=== PATIENT | male | born 1975 | race Caucasian/White ===

== ENCOUNTER 2018-12-18 09:59 | Outpatient (REF) | payer OTHER, SELFPAY ==
[2018-12-18 19:43] LABS: HCT 40.8 % (40.0-50.0); HGB 14.1 g/dL (13.5-17.5); Mean Corp. HGB Concentration 34.6 g/dL (32.0-36.0); Mean Corpuscular Hemoglobin 29.3 pg (27.0-33.0); Mean Corpuscular Volume 84.8 fL (80-95); Mean Platelet Volume 9.7 fL (8.0-11.0); Platelet Count 245 x1000/uL (130-400); RBC 4.81 m/cumm (4.50-6.00); RBC Distribution Width 12.7 % (11.8-14.1); White Blood Cell Count 4.85 k/cumm (4.4-10.8)
[2018-12-18 19:59] LABS: Iron 68 ug/dL (50-175); Total Iron Binding Capacity 323 ug/dL (250-450); Transferrin Sat 21 % (20-55)
[2018-12-18 20:01] LABS: Anion Gap 7.6 mmol/L (3-11); BUN 22 mg/dL (7-18); CO2 29.4 mmol/L (21.0-32.0); CREATININE 0.96 mg/dL (0.70-1.30); Calcium 8.9 mg/dL (8.5-10.1); Calculated LDL 135; Chloride 104 mmol/L (98-107); Cholesterol 191 mg/dL (50-200); Glucose 108 mg/dL (70-100); HDL Cholesterol 36 mg/dL (40-60); Potassium 4.1 mmol/L (3.5-5.1); Sodium 141 mmol/L (136-145); Triglyceride 100 mg/dL (30-150)
== END 2018-12-18 10:19 ==
LOC: NCHCN 09:59
PROVIDERS: PCP Family Medicine; Visit Provider Family Medicine
DX: E61.1 Iron deficiency (principal); Z00.00 Encounter for general adult medical examination without abnormal findings
CPT/HCPCS: 80048; 80061; 83721; 85027; 83540; 83550

== ENCOUNTER 2020-09-17 21:22 | Outpatient (REF) | payer OTHER, SELFPAY ==
[2020-09-17 19:35] LABS: HGB 14.1 g/dL (13.5-17.5); MCH 29.3 pg (27.0-33.0); MCHC 35.3 % (32.0-36.0); MCV 83.2 fL (80-95); MPV 9.4 fL (8.0-11.0); Platelet Count 262 10^3/uL (130-400); RBC 4.81 10^6/uL (4.36-5.78); RDW 12.2 % (11.8-14.1); RDW-SD 37.2 fL; WBC 6.19 10^3/uL (4.4-10.8)
[2020-09-17 19:43] LABS: ALT 78 U/L (16-63); AST 37 U/L (15-37); Albumin 4.6 g/dL (3.4-5.0); Alkaline Phosphatase 62 U/L (46-116); Anion Gap 12.5 mmol/L (3-11); BUN 18 mg/dL (7-18); Bilirubin, Total 0.5 mg/dL (0.2-1.0); CO2 25.5 mmol/L (21.0-32.0); Calcium 9.3 mg/dL (8.5-10.1); Chloride 101 mmol/L (98-107); Glucose 82 mg/dL (74-106); Potassium 3.9 mmol/L (3.5-5.1); Sodium 139 mmol/L (136-145); Total Protein 7.9 g/dL (6.4-8.2)
[2020-09-19 09:52] LABS: HIV-1/2 Ag & Ab Screen Negative (Negative)
== END 2020-09-17 21:23 | disposition home or self-care (01) ==
LOC: NCHCN 21:22
PROVIDERS: PCP Family Medicine; Visit Provider Family Medicine
DX: I10 Essential (primary) hypertension (principal); R74.01 Elevation of levels of liver transaminase levels; Z00.00 Encounter for general adult medical examination without abnormal findings; Z11.4 Encounter for screening for human immunodeficiency virus [HIV]
CPT/HCPCS: 80053; 85027; 87389

== ENCOUNTER 2021-09-18 17:32 | Outpatient (REF) | payer OTHER, SELFPAY ==
[2021-09-18 14:23] LABS: HCT 41.1 % (40.0-50.0); HGB 14.1 g/dL (13.5-17.5); MCH 29.3 pg (27.0-33.0); MCHC 34.3 % (32.0-36.0); MCV 85.3 fL (80-95); MPV 9.5 fL (8.0-11.0); Platelet Count 275 10^3/uL (130-400); RBC 4.82 10^6/uL (4.36-5.78); RDW 12.7 % (11.8-14.1)
[2021-09-18 15:16] LABS: ALT 69 U/L (16-63); AST 28 U/L (15-37); Albumin 4.5 g/dL (3.4-5.0); Alkaline Phosphatase 65 U/L (46-116); Anion Gap 10.9 mmol/L (3-11); BUN 23 mg/dL (7-18); Bilirubin, Total 0.4 mg/dL (0.2-1.0); CO2 25.1 mmol/L (21.0-32.0); Calculated LDL 118 mg/dL (<100); Chloride 105 mmol/L (98-107); Cholesterol 178 mg/dL (<200); Glucose 104 mg/dL (74-106); HDL Cholesterol 32 mg/dL (40-60); Potassium 4.4 mmol/L (3.5-5.1); Sodium 141 mmol/L (136-145); Total Protein 7.7 g/dL (6.4-8.2); Triglyceride 144 mg/dL (<150)
[2021-09-18 15:30] LABS: Calcium 9.6 mg/dL (8.5-10.1)
== END 2021-09-18 17:33 | disposition home or self-care (01) ==
LOC: NCHCN 17:32
PROVIDERS: PCP Family Medicine; Visit Provider Family Medicine
DX: E78.5 Hyperlipidemia, unspecified (principal); R73.03 Prediabetes; K76.0 Fatty (change of) liver, not elsewhere classified
CPT/HCPCS: 80053; 80061; 85027

== ENCOUNTER 2022-10-04 10:38 | Outpatient (REF) | payer OTHER, SELFPAY ==
[2022-10-04 15:21] LABS: HCT 41.6 % (40.0-50.0); HGB 14.6 g/dL (13.5-17.5); MCH 29.3 pg (27.0-33.0); MCHC 35.1 % (32.0-36.0); MCV 84 fL (80-95); MPV 9.4 fL (8.0-11.0); Platelet Count 236 10^3/uL (130-400); RBC 4.98 10^6/uL (4.36-5.78); RDW 12.4 % (11.8-14.1); RDW-SD 37.5 fL; WBC 6.91 10^3/uL (4.4-10.8)
[2022-10-04 15:38] LABS: ALT 77 U/L (16-63); AST 40 U/L (15-37); Albumin 4.6 g/dL (3.4-5.0); Alkaline Phosphatase 54 U/L (46-116); Anion Gap 9.8 mmol/L (3-11); BUN 16 mg/dL (7-18); Bilirubin, Total 0.6 mg/dL (0.2-1.0); CO2 27.2 mmol/L (21.0-32.0); CREATININE 1.1 mg/dL (0.70-1.30); Calcium 9.5 mg/dL (8.5-10.1); Chloride 106 mmol/L (98-107); Estimated GFR 82.81 (mL/min/1.73m2); Glucose 116 mg/dL (74-106); Potassium 4.2 mmol/L (3.5-5.1); Sodium 143 mmol/L (136-145); Total Protein 7.7 g/dL (6.4-8.2)
[2022-10-04 19:22] LABS: Vitamin D 25 Total 40.1 ng/mL (30-100)
== END 2022-10-04 10:39 | disposition home or self-care (01) ==
LOC: NCHCN 10:38
PROVIDERS: PCP Family Medicine; Visit Provider Family Medicine
DX: Z00.00 Encounter for general adult medical examination without abnormal findings (principal); K76.0 Fatty (change of) liver, not elsewhere classified; I10 Essential (primary) hypertension; R73.03 Prediabetes; E55.9 Vitamin D deficiency, unspecified
CPT/HCPCS: 80053; 82306; 85027

== ENCOUNTER 2023-03-15 06:57 | Day surgery (SDC) | payer OTHER, SELFPAY ==
--- NOTE | 2023-03-15 06:25 | W.ANESPRE ---
General Info Date of Service Date Performed: 03/15/23 Height: 5 ft 7 in Weight: 107.78 kg Body Mass Index (BMI): 37.2 Surgical Procedure: Operation Date: 03/15/23 08:20 Proposed Procedure Side Surgeon p Colonoscopy Romero Vee MD Meds Allergies and Home Medications Allergies Allergy/AdvReac Type Severity Reaction Status Date / Time No Known Allergies Allergy Unverified 03/15/23 07:12 Home Medication Medication Instructions Recorded amlodipine 5 mg tablet 5 mg PO DAILY 04/16/16 lorazepam 0.5 mg tablet 0.5 mg PO Q8H PRN #12 tabs 05/03/16 sertraline 50 mg tablet 50 mg PO DAILY AM 06/06/17 bisacodyl 5 mg tablet,delayed 5 mg PO ONCE colonscopy bowel prep 02/17/23 release (Dulcolax (bisacodyl)) #4 tabs multivitamin 1 tab PO DAILY 02/17/23 polyethylene glycol 3350 17 238 g PO ONCE colonoscopy prep 02/17/23 gram/dose oral powder #238 grams Current Visit Medications: Current Medications Generic Name Dose Route Start Last Admin Trade Name Freq PRN Reason Stop Dose Admin Ringer's Solution 1,000 mls @ 80 mls/hr 03/15/23 06:00 IV 03/15/23 23:59 INFUSION LEIGH ANN IV Miscellaneous Supplies 1 each 03/15/23 06:00 Iv Access IV 03/15/23 23:59 DIRECTED LEIGH ANN Sodium Chloride 0 ml 03/15/23 06:00 Normal Saline Flush 10 Ml Syr IV 03/15/23 23:59 PRN PRN Sodium Chloride 0 ml 03/15/23 06:00 Normal Saline 10 Ml Vial IJ 03/15/23 23:59 DIRECTED PRN Sterile Water 0 ml 03/15/23 06:00 Water,Injection,Sterile 10 Ml Vial IJ 03/15/23 23:59 DIRECTED PRN PFSH Active Problems Active Problems: Problem Status Onset Code Class 2 obesity with body mass index (BMI) of 36.0 to 36.9 in adult E66.9, Z68.36 Elevated LFTs R79.89 Vitamin D deficiency E55.9 Hypertension I10 AVM (arteriovenous malformation) Q27.30 WALI (generalized anxiety disorder) F41.1 Fatty liver disease, nonalcoholic K76.0 Hyperlipidemia E78.5 Prediabetes R73.03 Screening for colon cancer Z12.11 Surgical History Surgical History (Updated 03/15/23 @ 07:13 by Sridevi Aleman RN) S/P left knee arthroscopy pins placed and tendon repair Tobacco Smoking/Tobacco Use Status: Never Alcohol Alcohol Intake: never Substance Use Substance use: Never Substance use type: does not use Vital Signs and Lab Results Lab Results Blood Type / Crossmatch: No Data to Display Complete Blood Count: No Data to Display Complete Metabolic Panel: No Data to Display Liver Function Panel: No Data to Display Coagulation Panel: No Data to Display Cardiac Panel: No Data to Display Arterial Blood Gas: No Data to Display Venous Blood Gas: No Data to Display Pancreas Panel: No Data to Display Thyroid Panel: No Data to Display Infectious Disease: No Data to Display Blood Cultures: No Data to Display Toxicology Panel: No Data to Display Imaging and Studies Imaging and Studies Study information below may be from another EMR and interpreted by another provider. Please see original notes in EMR for more complete details. Stress Test Summary: Date of study: 04/21/2016 *PATIENT PRESENTATION* Height: 172.7cm ((68in) ) Blood Pressure: Weight: 85.9kg ((189lb) ) BSA: 2.05m^2 Ordering physician: Salvador Irvin Impressions: - Functional capacity was normal. - Negative stress test after maximal exercise. Anesthesia Assessment and Plan Anesthesia History Personal History: No History of Anesthesia Complications Family History: No Family History of Anesthesia Complications Exercise Tolerance Exercise Tolerance: Metabolic Equivalents>4 Pertinent Negatives Pertinent Negatives: No Symptoms of GERD, No Major Cardiovascular Symptoms or Complaints and No Major Pulmonary Symptoms or Complaints Cardiac & Pulmonary Exam Cardiac Exam: Normal S1/S2 Heart Sounds Pulmonary Exam: Clear Bilateral Breath Sounds Implantable Cardiac Device Does patient have a Pacemaker or an ICD?: No Airway Exam Known Difficult Airway: No Mallampati Class: 2 Mouth Opening: Normal (> 3cm) Thyromental Distance: Less than 3 cm Neck Range of Motion: Full ROM Neck Circumference: Normal Teeth Condition: Normal Dentition ASA Classification ASA Score: ASA 2 Emergency Case?: No NPO Status NPO Status: NPO Clears >2 hours, Solids >8 hours Anesthesia Plan Resuscitation Status: Full Code Anesthesia Technique: General Anesthesia Airway Planned: Natural Airway Monitors Used: Standard Monitors
[2023-03-15 06:26] VITALS: BMI 37.2
[2023-03-15 07:13] VITALS: BP 136/82; PULSE 68; RESP 17; TEMP 36.8; O2SAT 95
[2023-03-15] MEDS: Lactated Ringers 1,000 ML 80 ML IV (07:25)
[2023-03-15 09:51] VITALS: BP 118/78; PULSE 74; RESP 16; TEMP 37; O2SAT 97
--- NOTE | 2023-03-15 10:04 | COLE_ITS ---
Date of service: 03/15/23 Time of Service: 09:30 Colonoscopy Report Procedure Description: Procedures performed: 1. Colonoscopy Preoperative diagnosis: Surveillance colonoscopy Postoperative diagnosis: Normal Colon Surgeon: Linsey Vee Anesthesia: Denny Indication for procedure: 47-year-old woman without any symptoms, no prior colonoscopy, no family history of colon cancer due for screening. Findings: Normal terminal ileum.? Normal Colon.? Normal Rectum. Surveillance/follow-up recommendations: 10 years Complications: None Blood loss: Minimal Prep: Excellent Specimens:? None Procedure in detail: Written consent was obtained from the patient who was in agreement with the risks, benefits and indications of the procedure.? We went to the endoscopy suite and laid the patient in left lateral decubitus position.? Anesthesia was administered which was tolerated well.? A timeout was performed and when we are all in agreement we began the procedure. Digital rectal exam and visual examination was performed and within normal limits.? A well?lubricated colonoscope was advanced without difficulty all the way to the cecum identified by the ileocecal valve, and triangular folds and appendiceal orifice.? Terminal ileum was normal.? It was then slowly withdrawn .?? Retroflexion was performed in the rectum.? The findings/interventions are noted above. The scope was then removed and the patient tolerated the procedure well and was then taken back to the PACU in hemodynamically stable condition.
--- NOTE | 2023-03-15 10:04 | W.PM.DSUDISC ---
Date of service: 03/15/23 Time of Service: 10:05 Discharge Plan Disposition Patient Disposition: Home Condition: Good Discharge Details Attending Provider: Romero Vee Primary Care Provider: Tam Vidal Home Meds and New Rx's Prescriptions: No Action multivitamin Tablet 1 tab PO DAILY polyethylene glycol 3350 17 gram/dose powder 238 g PO ONCE Qty: 238 0RF Rx Instructions: take per colonoscopy instructions bisacodyl [Dulcolax (bisacodyl)] 5 mg tablet,delayed release (DR/EC) 5 mg PO ONCE Qty: 4 0RF Rx Instructions: take per colonoscopy instructions amlodipine 5 MG tablet 5 mg PO DAILY lorazepam 0.5 MG tablet 0.5 mg PO Q8H PRNQty: 12 0RF sertraline 50 MG tablet 50 mg PO DAILY AM Discharge Instructions Additional Instructions: FINDINGS: Completely normal colonoscopy. No polyps. No diverticular disease. You should repeat another colonoscopy in 10 years. Stand Alone Forms: Anesthesia Discharge Inst., Colonoscopy Post Instructions, Elvis Snyder ([facility]) Activity:: Activity as Tolerated Diet:: As Tolerated Discharge Orders Discharge Orders: Discharge Order (Routine); Ordered 03/15/23 Ordered By: Romero Vee Discharge Data Discharge Date/Time-TO BE ENTERED AT DEPARTURE: 03/15/23 10:37
[2023-03-15 10:21] VITALS: BP 136/90; PULSE 64; RESP 16; TEMP 36.6; O2SAT 96
--- NOTE | 2023-03-15 11:18 | W.ANESPOSTOP ---
Postoperative Evaluation Date, Time and Location Date Performed: 03/15/23 Time Performed: 09:55 Patient Location: Day Surgery Unit Vital Signs Most Recent Imported Vital Signs: Most Recent Vital Signs Temp Pulse Resp BP Pulse Ox 36.6 C 64 16 136/90 96 03/15/23 10:21 03/15/23 10:21 03/15/23 10:21 03/15/23 10:21 03/15/23 10:21 Pain Score Most Recent Pain Score: Most Recent Pain Score Pain Level 0 03/15/23 10:21 Assessment Mental Status: Awake (Alert & Oriented to Patient Baseline) Airway and Respiratory Function: Patent airway with normal (patient baseline) respiratory exam Cardiovascular Function: Hemodynamically Stable Hydration Status: Adequately Hydrated Nausea & Vomiting: No Nausea or Vomiting Pain: Pt. Denies Any Pain Peripheral Nerve Block: Patient did not receive a nerve block
== END 2023-03-15 10:37 | disposition home or self-care (01) ==
PROVIDERS: PCP Family Medicine; Visit Provider Student in an Organized Health Care Education/Training Program
PROC: 0DJD8ZZ Inspection of Lower Intestinal Tract, Via Natural or Artificial Opening Endoscopic (ICD-10-PCS; CPT 45378; principal; 2023-03-15 08:15)
DX: Z12.11 Encounter for screening for malignant neoplasm of colon (principal); I10 Essential (primary) hypertension; F41.1 Generalized anxiety disorder; R73.03 Prediabetes; E55.9 Vitamin D deficiency, unspecified; E66.9 Obesity, unspecified; K76.0 Fatty (change of) liver, not elsewhere classified
CPT/HCPCS: 45378

== ENCOUNTER 2023-10-06 14:26 | Outpatient (REF) | payer OTHER, SELFPAY ==
[2023-10-06 15:51] LABS: HCT 43.1 % (40.0-50.0); HGB 14.6 g/dL (13.5-17.5); MCH 28.6 pg (27.0-33.0); MCHC 33.9 % (32.0-36.0); MCV 85 fL (80-95); MPV 9.4 fL (8.0-11.0); Platelet Count 260 10^3/uL (130-400); RDW 12.3 % (11.8-14.1); RDW-SD 37.4 fL; WBC 6.62 10^3/uL (4.4-10.8)
[2023-10-06 16:26] LABS: ALT 104 U/L (16-63); AST 43 U/L (15-37); Albumin 4.5 g/dL (3.4-5.0); Alkaline Phosphatase 57 U/L (46-116); Anion Gap 11.7 mmol/L (3-11); BUN 22 mg/dL (7-18); Bilirubin, Total 0.5 mg/dL (0.2-1.0); CO2 27.3 mmol/L (21.0-32.0); CREATININE 1.1 mg/dL (0.70-1.30); Calcium 9.6 mg/dL (8.5-10.1); Calculated LDL 127 mg/dL (<100); Chloride 107 mmol/L (98-107); Cholesterol 201 mg/dL (<200); Estimated GFR 82.29 (mL/min/1.73m2); Glucose 115 mg/dL (74-106); HDL Cholesterol 41 mg/dL (40-60); Potassium 3.9 mmol/L (3.5-5.1); Sodium 146 mmol/L (136-145); Total Protein 7.6 g/dL (6.4-8.2); Triglyceride 169 mg/dL (<150)
[2023-10-06 18:03] LABS: Hemoglobin A1C 6.2 % (<5.7)
== END 2023-10-06 14:27 | disposition home or self-care (01) ==
LOC: NCHCN 14:26
PROVIDERS: PCP Family Medicine; Visit Provider Family Medicine
DX: Z13.6 Encounter for screening for cardiovascular disorders (principal); Z13.1 Encounter for screening for diabetes mellitus; K76.0 Fatty (change of) liver, not elsewhere classified
CPT/HCPCS: 80053; 80061; 85027; 83036

== ENCOUNTER 2024-10-05 10:07 | Outpatient (REF) | payer OTHER, SELFPAY ==
[2024-10-05 15:58] LABS: Abs Immature Grans 0.01 10^3/uL (0.0-0.06); Absolute Basophil Count 0.07 10^3/uL (0.0-0.2); Absolute Eosinophil Count 0.17 10^3/uL (0.0-0.7); Absolute Lymphocyte Count 2.33 10^3/uL (1.2-3.4); Absolute Monocyte Count 0.58 10^3/uL (0.1-0.8); Absolute Neutrophil Count 3.33 10^3/uL (1.2-6.7); Basophils % 1.1 %; Eosinophils % 2.6 %; HCT 43.9 % (40.0-50.0); HGB 14.7 g/dL (13.5-17.5); Immature Grans % 0.2 %; Lymphocytes % 35.9 %; MCH 28.5 pg (27.0-33.0); MCHC 33.5 % (32.0-36.0); MCV 85 fL (80-95); MPV 9.5 fL (8.0-11.0); Monocytes % 8.9 %; Neutrophils % 51.3 %; Platelet Count 267 10^3/uL (130-400); RBC 5.16 10^6/uL (4.36-5.78); RDW 12.4 % (11.8-14.1); RDW-SD 38.4 fL; WBC 6.49 10^3/uL (4.4-10.8)
[2024-10-05 16:10] LABS: ALT 112 U/L (16-63); AST 50 U/L (15-37); Albumin 4.4 g/dL (3.4-5.0); Alkaline Phosphatase 65 U/L (46-116); Anion Gap 9.6 mmol/L (3-11); BUN 22 mg/dL (7-18); Bilirubin, Total 0.4 mg/dL (0.2-1.0); CO2 29.4 mmol/L (21.0-32.0); CREATININE 1.4 mg/dL (0.70-1.30); Calcium 9.7 mg/dL (8.5-10.1); Chloride 107 mmol/L (98-107); Estimated GFR 61.23 (mL/min/1.73m2); Glucose 118 mg/dL (74-106); Potassium 4.2 mmol/L (3.5-5.1); Sodium 146 mmol/L (136-145); Total Protein 7.6 g/dL (6.4-8.2)
== END 2024-10-05 10:08 | disposition home or self-care (01) ==
LOC: NCHCN 10:07
PROVIDERS: PCP Family Medicine; Visit Provider Student in an Organized Health Care Education/Training Program
DX: R05.9 Cough, unspecified (principal)
CPT/HCPCS: 80053; 85025

== ENCOUNTER 2024-10-05 10:08 | Outpatient (CLI) | payer OTHER, SELFPAY ==
--- NOTE | 2024-10-05 | DI.RAD_ITS ---
Exam(s) XR CHEST 2V PA LATERAL EXAM: XR CHEST 2V PA LATERAL CLINICAL HISTORY: Cough R05.9. TECHNIQUE: 2D digital imaging was performed. COMPARISON: CT CHEST ABD PELVIS WITH CONTRAST from 04/16/2016 FINDINGS: 2 views: Heart size is normal. Left lung is clear. There are no pleural effusions. On the right side there is a prominent round density measuring 12 x [address] scan of April 2016 reveals this finding to correspond to part of the liver extending into the right thoracic cavity via a diaphragm hernia at this level. This finding is unchanged from 2016 and there is no surroundi ng infiltrate nor pleural effusion. 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 DATA REPOSITORY: RADIATION DOSE DELIVERED:
== END 2024-10-05 10:28 ==
LOC: DI 10:08
PROVIDERS: PCP Family Medicine; Visit Provider Student in an Organized Health Care Education/Training Program
DX: R05.9 Cough, unspecified (principal); R91.8 Other nonspecific abnormal finding of lung field
CPT/HCPCS: 71046

== ENCOUNTER 2025-03-26 14:52 | Outpatient (REF) | payer OTHER, SELFPAY ==
[2025-03-26 15:41] LABS: ALT 51 U/L (16-63); AST 24 U/L (15-37); Albumin 4.0 g/dL (3.4-5.0); Alkaline Phosphatase 59 U/L (46-116); Anion Gap 7.9 mmol/L (3-11); BUN 18 mg/dL (7-18); Bilirubin, Total 0.4 mg/dL (0.2-1.0); CO2 29.1 mmol/L (21.0-32.0); Calcium 9.3 mg/dL (8.5-10.1); Calculated LDL 114 mg/dL (<100); Chloride 107 mmol/L (98-107); Cholesterol 169 mg/dL (<200); Estimated GFR 91.12 (mL/min/1.73m2); Glucose 95 mg/dL (74-106); HDL Cholesterol 35 mg/dL (>or=40); Potassium 3.9 mmol/L (3.5-5.1); Sodium 144 mmol/L (136-145); Total Protein 6.9 g/dL (6.4-8.2); Triglyceride 103 mg/dL (<150)
== END 2025-03-26 14:53 | disposition home or self-care (01) ==
LOC: NCHCN 14:52
PROVIDERS: PCP Student in an Organized Health Care Education/Training Program; Visit Provider Student in an Organized Health Care Education/Training Program
DX: R74.01 Elevation of levels of liver transaminase levels (principal); E78.5 Hyperlipidemia, unspecified
CPT/HCPCS: 80053; 80061